=== PATIENT | female | born 1960 | race Caucasian/White ===

== ENCOUNTER 2017-02-08 16:07 | Emergency (ER) | payer OTHER ==
[~2017-02-08] VITALS: Ht 160 cm; Wt 63.5 kg
[2017-02-08] MEDS ORDERED: HYDR200T3 (16:19)
[2017-02-08] MEDS ORDERED: OMEP20CA3 (16:19)
[2017-02-08] MEDS ORDERED: REST0.05 (16:19)
[2017-02-08] MEDS ORDERED: ACET1TAB17 PO (16:19)
[2017-02-08] MEDS ORDERED: VITA1CAP40 (16:19)
[2017-02-08] MEDS ORDERED: RANI150T (16:19)
[2017-02-08] MEDS ORDERED: KETOROLAC 60 MG/2 ML VIAL (J1885) IM ONE (17:15)
--- NOTE | 2017-02-08 17:57 | REP ---
CT of the brain without IV contrast: The patient has a prior MRI dated 07/25/2007. There is no hemorrhage. There is no edema, mass effect or midline shift. The cortical stripe is unremarkable. Ventricles are normal size and midline. There are bilateral basal ganglia calcifications, likely degenerative. The visualized paranasal sinuses and mastoid air cells are clear. Impression: There is no hemorrhage, acute infarct or mass. Bilateral basal ganglia calcifications, likely degenerative. Signed by Eliud Hays MD 02/08/2017 05:49 P
[2017-02-08] MEDS ORDERED: IBUP80TA PO (18:21)
[2017-02-08 18:24] VITALS: BP 138/76
--- NOTE | 2017-02-11 10:11 | ED PDOC ---
Post-Departure Follow-Up addendum for documentation of physical exam which was omitted on T Sheet: nursing notes and vitals reviewed general: alert female somewhat anxious but in no apparent distress eyes: PERRL. EOMI. no nystagmus. lids, palpebral fissures, conjunctivae, sclerae , iris normal. no redness or exudate. fundoscopic exam negative, no apparent anterior chamber clouding/ opacity, no papilledema or hemorrhage. ent: grossly normal, no discoloration, deformity, tenderness cardiovascular: normal heart sounds and rate. no lower extremity edema. DP and PT pulses 2+. no temporal artery tenderness. pulmonary: lungs CTA. no resipratory distress. neuro: mental status: A+Ox 4. CN II-XII intact. motor: strength 5/5 bilateral upper and lower extremities. sensory: sensation to light touch intact bilateral upper and lower extremities. reflexes: 2+ DTRs bilateral biceps, triceps, brachioradialis, patellar, Achilles. coordination: gait normal and steady when observed casually and during tandem, heel, and toe walking. no instability with Romberg. accurate smooth movements with finger to nose. skin: warm and dry, no lesions musculoskeletal: no nuchal rigidity or tenderness, normal neck ROM. no upper or lower extremity joint edema, erythema, deformity Jaz Son PA-C Feb 11, 2017 10:11
== END 2017-02-08 18:36 | disposition home or self-care (01) ==
LOC: M ED 16:07
DX: R51 Headache (principal); Z87.891 Personal history of nicotine dependence
CPT/HCPCS: 70450; 96372; 99282; J1885

== ENCOUNTER → 2017-05-07 | Outpatient (REF) | payer OTHER | LOC: M LAB REF 08:46 | DX: J02.9 Acute pharyngitis, unspecified (principal) ==

== ENCOUNTER → 2017-07-18 | Outpatient (CLI) | payer OTHER ==
[2017-07-18 09:17] LABS: HEMATOCRIT 42.2 % (36.0-47.0); HEMOGLOBIN 13.8 g/dl (12.0-16.0); MEAN CORPUSCULAR HEMOGLOBIN 29.4 pg (27.0-33.0); MEAN CORPUSCULAR HGB CONC 32.7 g/dl (32.0-36.5); PLATELET COUNT, AUTOMATED 219 10^3/uL (150-450); RED BLOOD COUNT 4.69 10^6/uL (4.00-5.40); RED CELL DISTRIBUTION WIDTH 13.4 % (11.5-14.5)
[2017-07-18 09:43] LABS: ALBUMIN 3.4 GM/DL (3.2-5.2); ALBUMIN/GLOBULIN RATIO 1.26 (1.00-1.93); ALKALINE PHOSPHATASE 63 U/L (45-117); ALT/SGPT 22 U/L (12-78); ANION GAP 6 MEQ/L (8-16); AST/SGOT 14 U/L (7-37); BILIRUBIN,TOTAL 0.4 MG/DL (0.2-1.0); BLOOD UREA NITROGEN 21 MG/DL (7-18); CALCIUM LEVEL 8.5 MG/DL (8.5-10.1); CARBON DIOXIDE LEVEL 29 MEQ/L (21-32); CHLORIDE LEVEL 110 MEQ/L (98-107); CHOLESTEROL LEVEL 241 MG/DL (<200); CHOLESTEROL RISK RATIO 2.591 (<5); CREATININE FOR GFR 0.71 MG/DL (0.55-1.30); GLOMERULAR FILTRATION RATE > 60.0 (>51); GLUCOSE, FASTING 99 MG/DL (70-100); HDL CHOLESTEROL 93 MG/DL (>40); LDL CHOLESTEROL 138.4 MG/DL (<100); NON-HDL-C 148 MG/DL; POTASSIUM SERUM 4.2 MEQ/L (3.5-5.1); SODIUM LEVEL 145 MEQ/L (136-145); TOTAL PROTEIN 6.1 GM/DL (6.4-8.2); TRIGLYCERIDES LEVEL 48 MG/DL (<150)
== END ==
LOC: M LAB 08:48
DX: E78.2 Mixed hyperlipidemia (principal); R53.83 Other fatigue
CPT/HCPCS: 84443